=== PATIENT | male | born 1980 | race Caucasian/White ===

== ENCOUNTER 2019-12-13 01:18 | Emergency (ER) | payer MEDICAID ==
[~2019-12-13] VITALS: Ht 170.2 cm; Wt 70.3 kg
--- NOTE | 2019-12-13 07:16 | EKG ---
[facility] [address] [facility] [place] [address] Signed Normal sinus rhythm Septal infarct , age undetermined Abnormal ECG No previous ECGs available Confirmed by MERCEDES STONE MD [id number] on 12/13/2019 7:16:15 AM Electronically Signed By: MERCEDES STONE MD 12/13/19 0716 PATIENT NAME: VINCENT WAY JUDY Electrocardiogram DATE OF : 82 PHYSICIAN: MERCEDES STONE MD REPORT #: [id number] REPORT IS CONFIDENTIAL AND NOT TO BE RELEASED WITHOUT AUTHORIZATION
== END 2019-12-13 03:01 | disposition home or self-care (01) ==
LOC: ED 01:18
DX: R07.9 Chest pain, unspecified (principal); F17.200 Nicotine dependence, unspecified, uncomplicated; Z88.6 Allergy status to analgesic agent; Z88.5 Allergy status to narcotic agent
CPT/HCPCS: 71045; 80053; 83735; 84484; 85025; 93005; 93010; 99285-25